=== PATIENT | male | born 1945 | race Two or more races ===

== ENCOUNTER 2021-01-30 09:13 | Day surgery (SDC) | payer MEDICARE, OTHER ==
[~2021-01-30] VITALS: Ht 188 cm; Wt 93.8 kg
[2021-01-30] VITALS (10 sets, daily range): BP systolic 92–138; BP diastolic 53–68
[~2021-01-30 09:13] MED LIST: ALLO100T PO; ASPI-1053 PO; CLOP75TA34 PO; ENAL10TA19 PO; FENO145T38 PO; FLO0.4C PO; GLIP5TAB13 PO; ICOS1CAP PO; INSU100V9 SQ; LEVO88TA2 PO; METF500T PO; PRAV80TA3 PO
[2021-01-30] MEDS ORDERED: normal saline 1,000 ML IV SCH (09:55)
[2021-01-30] MEDS ORDERED: diphenhydrAMINE 25mg capsule PO PRN (09:55)
[2021-01-30 10:12] LABS: BASOPHILS # (AUTO) 0.1 X10'3 (0-0.2); BASOPHILS % (AUTO) 0.7 % (0-1); EOSINOPHILS # (AUTO) 0.3 X10'3 (0-0.9); EOSINOPHILS % (AUTO) 2.9 % (0-6); HEMATOCRIT 37.4 % (42.0-52.0); HEMOGLOBIN 12.6 g/dl (14.0-17.9); LYMPHOCYTES # (AUTO) 1.5 X10'3 (1.1-4.8); LYMPHOCYTES % (AUTO) 17.2 % (21-51); MEAN CORPUSCULAR HEMOGLOBIN 27.3 PG (27.0-31.0); MEAN CORPUSCULAR HGB CONC 33.7 g/dL (33.0-36.5); MEAN CORPUSCULAR VOLUME 80.9 FL (78-98); MEAN PLATELET VOLUME 8.6 FL (7.4-10.4); MONOCYTES # (AUTO) 0.6 X10'3 (0-0.9); MONOCYTES % (AUTO) 6.2 % (2-12); NEUTROPHILS # (AUTO) 6.4 X10'3 (1.8-7.7); PLATELET COUNT 259 X10'3 (140-440); RED BLOOD COUNT 4.62 X10'6 (4.70-6.10); RED CELL DISTRIBUTION WIDTH 15.3 % (11.5-14.5); WHITE BLOOD COUNT 8.8 X10'3 (4.5-11.0)
[2021-01-30] MEDS ORDERED: ALLO300T35 PO (10:13)
[2021-01-30] MEDS ORDERED: LEVO100T PO (10:13)
[2021-01-30] MEDS ORDERED: ENAL10TA78 PO (10:13)
[2021-01-30 10:22] LABS: ALBUMIN 3.7 G/DL (3.4-5.0); ANION GAP 13 (8-16); BLOOD UREA NITROGEN 39 MG/DL (7-18); BUN/CREATININE RATIO 17.6 (5.4-32.0); CALCIUM 9.5 MG/DL (8.5-10.1); CHLORIDE 103 MMOL/L (99-107); CREATININE 2.22 MG/DL (0.60-1.10); GLUCOSE 147 MG/DL (70-104); MAGNESIUM 1.8 MG/DL (1.5-2.4); SODIUM 139 MMOL/L (135-145); eGFR 29 ML/MIN
[2021-01-30] MEDS ORDERED: LIDOcaine 1% (10mg/ml)w/preservative injection 20ml MDV ONE (11:03)
[2021-01-30] MEDS ORDERED: fentaNYL/PF 50MCG/1 ML 2ML syringe ONE (11:03)
[2021-01-30] MEDS ORDERED: iohexol 350MG/ML 100ml bottle IV ONE ×2 (11:03→11:52)
[2021-01-30] MEDS ORDERED: heparin 1,000unit/ml 10ml vial 10 ML ONE (11:03)
[2021-01-30] MEDS ORDERED: iohexol 350 MG/ML 50ML vial IV ONE ×2 (11:03→11:59)
[2021-01-30] MEDS ORDERED: midazolam 1 mg/ML 2ml injection ONE (11:03)
[2021-01-30] MEDS ORDERED: clopidogrel 300mg tablet ONE (12:07)
[2021-01-30] MEDS ORDERED: furosemide 40mg/4ml inj IV ONE (12:35)
[2021-01-30] MEDS ORDERED: proCHLORperazine 10 MG/2 ml inj IV PRN (12:35)
[2021-01-30] MEDS ORDERED: HYDROcodone/acetaminophen 10/325mg tab PO PRN (12:35)
[2021-01-30] MEDS ORDERED: acetaminophen 325mg tablet PO PRN (12:35)
[2021-01-30] MEDS ORDERED: ondansetron/PF 4mg/2ml inj IV PRN (12:35)
[2021-01-30] MEDS ORDERED: HYDROcodone/acetaminophen 5mg/325mg tablet PO PRN (12:35)
== END 2021-01-30 16:00 | disposition home or self-care (01) ==
LOC: SSTAY O 09:13
PROVIDERS: ATTEND Internal Medicine Cardiovascular Disease
DX: R94.39 Abnormal result of other cardiovascular function study (principal); R06.09 Other forms of dyspnea; R07.89 Other chest pain; I25.118 Atherosclerotic heart disease of native coronary artery with other forms of angina pectoris; I25.2 Old myocardial infarction; I45.10 Unspecified right bundle-branch block; I10 Essential (primary) hypertension; E78.5 Hyperlipidemia, unspecified; E03.9 Hypothyroidism, unspecified; M10.9 Gout, unspecified; I44.0 Atrioventricular block, first degree; M19.90 Unspecified osteoarthritis, unspecified site; N40.0 Benign prostatic hyperplasia without lower urinary tract symptoms; E11.40 Type 2 diabetes mellitus with diabetic neuropathy, unspecified; N19 Unspecified kidney failure; Z95.5 Presence of coronary angioplasty implant and graft; Z79.4 Long term (current) use of insulin; Z79.899 Other long term (current) drug therapy; Z87.891 Personal history of nicotine dependence; Z88.2 Allergy status to sulfonamides; Z83.3 Family history of diabetes mellitus
CPT/HCPCS: 36415; 80048; 82948; 83735; 85025; 85610; 93005; 93458; 99152; 99153; C1725; C1760; C1769; C1874; C1894; C9600; J1644; J2001; J2250; J3010; J7030; Q0163; Q9967; 92920; A4620; A6258